=== PATIENT | female | born 1955 | race Caucasian/White ===

== ENCOUNTER 2019-10-18 11:07 | Emergency (ER) | payer OTHER, SELFPAY ==
[2019-10-18 11:10] VITALS: BP 129/66; PULSE 112; RESP 18; TEMP 36.9; O2SAT 96
--- NOTE | 2019-10-18 11:19 | ED.URI ---
HPI - URI/Sore Throat General Chief Complaint: Upper Respiratory Infection Stated Complaint: COUGH/SORE THROAT Time Seen by Provider: 10/18/19 11:20 Source: patient Mode of arrival: ambulatory Limitations: no limitations History of Present Illness HPI Narrative: A 64 y/o female, who is a nonsmoker/nondrinker, presents to with c/o a sore throat for 2.5 weeks. 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 She reports sinus congestion, an earache, a cough, back pain, and rhinorrhea, but denies a fever, calf pain/ edema, sputum, and CP. Pt does not have an inhaler at home. Onset (ago): week(s) (2.5) Related Data Home Medications Medication Instructions Recorded Confirmed paroxetine HCl [Paxil] 20 mg PO QAM 08/12/19 10/18/19 Allergies Allergy/AdvReac Type Severity Reaction Status Date / Time No Known Allergies Allergy Mild Unverified 10/18/19 11:09 Review of Systems Review of Systems: Narrative: General/Constitutional: Denies: weight loss,fever Eyes: Denies: Redness,discharge Ears/Nose/Throat: Reports: sore throat, sinus congestion, earache, rhinorrhea; Denies: Epistaxis,ear discharge Respiratory: Reports: cough; Denies: Hemoptysis Cardiovascular: Denies: CP, edema Gastrointestinal: Denies: Vomiting, Bleeding-rectal Skin: Denies: Lumps, eruption Musculoskeletal: Reports: back pain Neurologic: Denies: Focal Weakness,Sz Hematologic: Denies: Petechiae/Purpura Psychiatric: Denies: Suicidal ideation All systems reviewed & are unremarkable except as noted in HPI and below PMFSH Past Medical History Medical History (Updated 10/18/19 @ 11:38 by Roxana Lagos) Anxiety Arthritis Depression HLD (hyperlipidemia) Migraines Surgical History Surgical History (Updated 10/18/19 @ 11:38 by Roxana Lagos) H/O bilateral hip replacements H/O lumpectomy benign H/O Spinal surgery H/O: hysterectomy History of bladder suspension procedure Social History Social History (Updated 10/18/19 @ 11:38 by Roxana Lagos) Smoking status: Never smoker Second hand tobacco smoke exposure: Yes Alcohol intake: never Comments PCP: Dr. Holliday At time of signature, agree with nursing past medical, surgical, social and family history. There is no relevant family history pertinent to the presenting complaint Exam Narrative: Exam Narrative: General Appearance: Well appearing, Well nourished EYE: PERRLA, Conjunctiva clear Ears: Auditory canal normal, TM normal Nose: Rhinorrhea, Mucousal erythema Mouth/Throat: MM moist, Uvula midline, Pharyngeal erythema Neck: Supple, No adenopathy Respiratory: No respiratory distress, Breath sounds equal, Clear to auscultation Cardiovascular: Tachycardic, regular rhythm, No JVD Musculoskeletal: Non tender, Normal strength Skin: Warm, Dry Neurological: A&O x3, CN II-XII intact Psychiatric: Normal mood, Normal affect Course Vital Signs Vital signs: Vital Signs Temperature 98.5 F 10/18/19 11:10 Pulse Rate 112 H 10/18/19 11:10 Respiratory Rate 18 10/18/19 11:10 Blood Pressure 129/66 10/18/19 11:10 Pulse Oximetry 96 10/18/19 11:10 Temperature 98.5 F 10/18/19 11:10 Pulse Rate 112 H 10/18/19 11:10 Respiratory Rate 18 10/18/19 11:10 Blood Pressure 129/66 10/18/19 11:10 Pulse Oximetry 96 10/18/19 11:10 MDM - URI/Sore Throat Lab Data Labs: Strep Screen Presumptive Negative *(Reference Range: Negative)* Discharge Plan Discharge Clinical Impression: Pharyngitis Patient Disposition: Home, Self-Care Condition: Stable Instructions: Antibiotic Form, Pharyngitis (ED) Prescriptions: New azithromycin 250 mg tablet See Rx Instructions .ROUTE .COMPLEX Qty: 6 RF: 0 Lidocaine Viscous 2 % solution 5 ml MUCOUS MEM QID PRN (Reason: pain) Qty: 100 RF: 0 codeine-guaifenesin 10-100 mg/5 mL liquid 7.5 ml PO Q6H PRN (Reason: cough) Qty: 118 RF: 0 No Action
== END 2019-10-18 11:40 | disposition home or self-care (01) ==
PROVIDERS: Emergency Provider Emergency Medicine; PCP Internal Medicine
DX: J02.9 Acute pharyngitis, unspecified (principal); M19.90 Unspecified osteoarthritis, unspecified site; E78.5 Hyperlipidemia, unspecified; F41.9 Anxiety disorder, unspecified; F32.9 Major depressive disorder, single episode, unspecified; Z96.642 Presence of left artificial hip joint
CPT/HCPCS: 87081; 87880; 99213; G0463

== ENCOUNTER 2020-05-05 16:25 | Emergency (ER) | payer OTHER, SELFPAY ==
--- NOTE | ~2020-05-05 | XR_ITS ---
EXAMINATION: XR chest 2V 05/05/2020 16:54 INDICATION: Left chest pain PROCEDURE: 2 view chest COMPARISON: 05/21/2012 FINDINGS: The lungs are clear. The lungs are hyperinflated which is consistent with, but not diagnost ic of chronic obstructive pulmonary disease. The cardiomediastinal silhouette is within normal limit s. There are no pleural effusions. There is no pneumothorax suspected. IMPRESSION: 1: NO ACUTE CARDIOPULMONARY DISEASE. Reviewed, dictated and finalized at location A.
--- NOTE | 2020-05-05 16:52 | ED.FALL ---
HPI - Fall General Chief Complaint: Fall Stated Complaint: Fall Time Seen by Provider: 05/05/20 16:30 Source: patient and RN notes reviewed Mode of arrival: ambulatory Limitations: no limitations History of Present Illness HPI Narrative: The patient, previously mostly healthy, presents with left chest wall pain. Patient states while at work on Sunday she slipped and fell crossing a curb. She landed on her outstretched hands on concrete and complains of left rib pain, and mentions well-healed leftt knee abrasion. No fever, cough, shortness of breath, sneezing/wheezing, hemoptysis, hematuria; symptoms are mild, worse with palpation, slightly relieved with OTC/home pain meds Related Data Allergies Allergy/AdvReac Type Severity Reaction Status Date / Time No Known Allergies Allergy Mild Unverified 10/18/19 11:09 Review of Systems Review of Systems: Narrative: The patient has been informed that they may have pre-hypertension or Hypertension based on a BP reading in the department. I recommend that the patient call the primary care provider listed on their discharge instructions or a physician of their choice this week to arrange follow up for further evaluation of possible pre-hypertension or Hypertension General/Constitutional: No weight loss,fever Eyes: N0: Redness,discharge Ears/Nose/Throat: No: Epistaxis,ear discharge Respiratory: Denies: Hemoptysis Gastrointestinal: No Vomiting, Bleeding-rectal Skin: No Lumps, eruption Neurologic: No Focal Weakness,Sz Hematologic: Denies: Petechiae/Purpura Psychiatric: No: Suicida ideationl All Other Systems: Reviewed and Negative REPLACED BY [facility] Past Medical History Medical History (Updated 05/05/20 @ 16:58 by Tom Jay MD) Anxiety Arthritis Depression HLD (hyperlipidemia) Migraines Surgical History Surgical History (Updated 10/18/19 @ 11:38 by Roxana Lagos) H/O bilateral hip replacements H/O lumpectomy benign H/O Spinal surgery H/O: hysterectomy History of bladder suspension procedure Social History Social History (Updated 10/18/19 @ 11:38 by Roxana Lagos) Smoking status: Never smoker Second hand tobacco smoke exposure: Yes Alcohol intake: never Comments At time of signature, agree with nursing past medical, surgical, social and family history. There is no relevant family history pertinent to the presenting complaint Exam Narrative: Exam Narrative: General Appearance: Well appearing, conjunctiva clear Mouth/Throat: Normal appearing, Normal lips Supple Respiratory: Airway patent, No respiratory distress Skin: Point tender left ribs T7-11 , warm, Dry Cardiovascular: RRR Musculoskeletal: Full strength Neurological: A&O x3, Normal affect Course Vital Signs Vital signs: Vital Signs Temperature 99.2 F 05/05/20 16:54 Pulse Rate 93 05/05/20 16:54 Respiratory Rate 18 05/05/20 16:54 Blood Pressure 143/73 H 05/05/20 16:54 Pulse Oximetry 97 05/05/20 16:54 Temperature 99.2 F 05/05/20 16:54 Pulse Rate 93 05/05/20 16:54 Respiratory Rate 18 05/05/20 16:54 Blood Pressure 143/73 H 05/05/20 16:54 Pulse Oximetry 97 05/05/20 16:54 Discharge Plan Discharge Clinical Impression: Rib injury Patient Disposition: Home, Self-Care Condition: Stable Instructions: Rib Fracture (ED) Additional Instructions: Reduce Paxil by half when taking prescription pain meds Prescriptions: New tramadol 50 mg tablet 50 mg PO TID PRN (Reason: pain) Qty: 15 RF: 1 acetaminophen-codeine 120 mg-12 mg /5 mL (5 mL) solution 15 ml PO Q8H PRN (Reason: pain) Qty: 200 RF: 0 No Action simvastatin 20 mg tablet 20 mg PO DAILY Qty: 90 RF: 2 paroxetine HCl [Paxil] 20 mg tablet 20 mg PO QAM Qty: 30 RF: 0 Follow-up/Referrals: Erich Holliday DO [Primary Care Provider] - Discharge Date/Time: 05/05/20 17:14
[2020-05-05 16:54] VITALS: BP 143/73; PULSE 93; RESP 18; TEMP 37.3; O2SAT 97
== END 2020-05-05 17:14 | disposition home or self-care (01) ==
PROVIDERS: Emergency Provider Emergency Medicine; PCP Internal Medicine
DX: S29.9XXA Unspecified injury of thorax, initial encounter (principal); W01.0XXA Fall on same level from slipping, tripping and stumbling without subsequent striking against object, initial encounter; F41.9 Anxiety disorder, unspecified; M19.90 Unspecified osteoarthritis, unspecified site; Z96.643 Presence of artificial hip joint, bilateral
CPT/HCPCS: 71046; 99203; G0463

== ENCOUNTER → 2020-10-28 13:26 | Outpatient (CLI) | payer OTHER, SELFPAY ==
--- NOTE | ~2020-10-28 | MM_ITS ---
EXAMINATION: MM screening sunny BI w alexandra HISTORY: Screening TECHNIQUE: Craniocaudal and mediolateral oblique 3-D tomosynthesis images were obtained and synthetic 2-D images were generated. CAD analysis was submitted and interpreted. COMPARISON: Comparison to multiple prior studies sequentially, with oldest reviewed study dated 02/23. BREAST PARENCHYMAL COMPOSITION: There are scattered areas of fibroglandular density. FINDINGS: There is no evidence of suspicious mass, calcification, or architectural distortion to sugg est malignancy in either breast. There has been no suspicious interval change. IMPRESSION: 1. No mammographic evidence of malignancy. 2. Recommend routine screening mammography in one year. BI-RADS Category 1: Negative Reviewed, dictated and finalized at location A. R LEAK REPAIRER
== END ==
PROVIDERS: PCP Internal Medicine; Visit Provider Internal Medicine
DX: Z12.31 Encounter for screening mammogram for malignant neoplasm of breast (principal)
CPT/HCPCS: 77063; 77067

== ENCOUNTER 2021-07-28 12:25 | Emergency (ER) | payer OTHER, SELFPAY ==
[2021-07-28 12:35] VITALS: BP 118/47; PULSE 104; RESP 16; TEMP 36.9; O2SAT 96
--- NOTE | 2021-07-28 12:42 | ED.EXTPRO ---
HPI - Extremity Problem General Chief complaint: Extremity Problem,Nontraumatic Stated complaint: lt leg pain Source: patient Mode of arrival: ambulatory Limitations: no limitations History of Present Illness HPI Narrative: Patient is a 65-year-old female who presents complaining of left lower extremity pain x1 day. Patient reports tenderness with ambulation and palpation of left lower extremity. Patient has a history of varicose veins, she does not have a history of blood clots. She denies all other complaints at this time. She denies taking srbb-wvs-juibwiz medications prior to arrival. MD Complaint: extremity pain and extremity swelling Related Data Allergies Allergy/AdvReac Type Severity Reaction Status Date / Time No Known Allergies Allergy Mild Verified 07/28/21 12:34 Review of Systems Review of Systems: CONSTITUTIONAL: Denies fever, chills, or sweats. EYES: Denies visual changes, redness, or discharge. ENT: Denies rhinorrhea, congestion, sore throat, or otalgia. CARDIOVASCULAR: Denies chest pain, palpitations, or edema. RESPIRATORY: Denies cough or dyspnea. GASTROINTESTINAL: Denies abdominal pain, nausea, vomiting, or diarrhea. GENITOURINARY: Denies dysuria or hematuria. SKIN: Denies rash or itching. MUSCULOSKELETAL: Left lower extremity pain NEUROLOGIC: Denies headache, numbness, dizziness, or weakness. PSYCHIATRIC: Denies anxiety or depression. [facility] Past Medical History Medical History Anxiety Arthritis Depression HLD (hyperlipidemia) Migraines Prediabetes Surgical History Surgical History H/O bilateral hip replacements H/O lumpectomy benign H/O Spinal surgery H/O: hysterectomy History of bladder suspension procedure Social History Social History Smoking status: Never smoker Second hand tobacco smoke exposure: Yes Alcohol intake: never Comments At the time of signature, I have reviewed and agree with nursing past medical, surgical, social, and family history unless otherwise noted. Please see nursing chart for further information. There is no relevant family history pertinent to the presenting complaint. Exam Narrative: GENERAL: Well-appearing, well-nourished, and in no acute distress. HEAD: Normocephalic, atraumatic. EYES: EOMI. No redness or drainage. Conjunctiva are normal. ENT: Mucous membranes pink and moist. CHEST: No respiratory distress. Clear to auscultation. HEART: Regular rate and rhythm. GI: Soft, nontender without rebound, or guarding. No distention. Bowel sounds normal in all quadrants. MUSCULOSKELETAL: No bony tenderness. EXTREMITIES: Normal range of motion. Tenderness with palpation to left lower extremity, edema noted SKIN: Warm, dry, no rash. NEURO: No focal deficits. Alert and oriented x3. Gait steady. PSYCH: Normal affect. No signs of depression or anxiety. Course Consultations Consultation #1: Spoke with Shelley Bojorquez NP at Dr. Holliday's office. Patient to have venous Doppler of left lower extremity ordered. Patient is aware that she needs to go to [place] for further evaluation after leaving here. Date: 07/28/21 Time: 13:23 Vital Signs Vital signs: Vital Signs Temperature 36.9 C 07/28/21 12:35 Pulse Rate 104 H 07/28/21 12:35 Respiratory Rate 16 07/28/21 12:35 Blood Pressure 118/47 L 07/28/21 12:35 Pulse Oximetry 96 07/28/21 12:35 Temperature 36.9 C 07/28/21 12:35 Pulse Rate 104 H 07/28/21 12:35 Respiratory Rate 16 07/28/21 12:35 Blood Pressure 118/47 L 07/28/21 12:35 Pulse Oximetry 96 07/28/21 12:35 At the time of signature, I have reviewed and agree with nursing past medical, surgical, social, and family history unless otherwise noted. Please see nursing chart for further information. There is no relevant family history pertinent to the presentin
== END 2021-07-28 13:30 | disposition home or self-care (01) ==
PROVIDERS: Emergency Provider Nurse Practitioner; PCP Internal Medicine
DX: M79.662 Pain in left lower leg (principal); R60.0 Localized edema; M19.90 Unspecified osteoarthritis, unspecified site; E78.5 Hyperlipidemia, unspecified; R73.03 Prediabetes; Z96.643 Presence of artificial hip joint, bilateral; F41.9 Anxiety disorder, unspecified; F32.A Depression, unspecified
CPT/HCPCS: 99212; G0463

== ENCOUNTER 2021-07-28 13:54 | Outpatient (CLI) | payer OTHER, SELFPAY ==
--- NOTE | ~2021-07-28 | US_ITS ---
EXAMINATION: US venous doppler [facility] EXAM DATE: 07/28/2021 14:31 INDICATION: M79.605 - Pain in left leg . TECHNIQUE: Multiple grayscale, color flow and Doppler images of the left lower extremity deep venous system were obtained and reviewed. There is no prior study for comparison. FINDINGS: The left common femoral, femoral and profunda veins demonstrate normal color flow, respirat ory variation, augmentation and compressibility. Compressibility, color flow confirmed within the le ft popliteal, posterior tibial, peroneal, and greater saphenous veins. Scanning left calf lateral area of pain demonstrates a thrombosed superficial varicose vein. IMPRESSION: 1. No left lower extremity deep venous thrombosis. 2. Left calf superficial thrombophlebitis. Reviewed, dictated and finalized at location B. 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
== END 2021-07-28 13:55 | disposition home or self-care (01) ==
LOC: ANHIMG 13:55
PROVIDERS: PCP Internal Medicine; Visit Provider Nurse Practitioner
DX: M79.605 Pain in left leg (principal); I80.02 Phlebitis and thrombophlebitis of superficial vessels of left lower extremity
CPT/HCPCS: 93971

== ENCOUNTER 2021-11-11 10:12 | Outpatient (CLI) | payer MEDICARE, OTHER, SELFPAY ==
--- NOTE | 2021-11-11 10:53 | EST_ITS ---
Patient Info Name: Deanna Tristan Age: 66 years : 1955 Gender: Female Ht: 71 in Wt: 195 lbs BSA: 2.12 m2 HR: 112 bpm BP: 143 / 82 mmHg Heart Rhythm: Sinus Rhythm Exam Date: 11/11/2021 11:58 AM Exam Location: [facility] Patient Status: Outpatient Admit Date: 11/11/2021 Staff Ordering Physician: Shelley Gamez NP Attending Provider: Shelley Gamez NP Exercise Technologist: Maria G Andersen CT Exercise Physician: Robert Cobb DO Exam Type: CA stress test treadmill Study Info Indications R06.00 - Dyspnea, unspecified A treadmill exercise stress test was performed. Summary 1. 1. Negative [facility] exercise stress test for ischemic ST changes by ECG criteria. 2. 2. Reduced functional capacity, achieving 6 METs of workload. 3. 3. Baseline hypertension. 4. 4. Appropriate HR response to exercise. 5. 5. Appropriate HR recovery at 1 minute post exercise. 6. 6. No imaging with stress testing. 7. 7. Patient informed of the above results. Protocol: [facility] ECG Details Stage: REST Duration (min): 0 min : 47 sec Speed (mph): 0.0 Grade (%): 0 HR (bpm): 109 SBP (mmHg): 143 DBP (mmHg): 82 METS: --- Stage: REST Duration (min): 8 min : 13 sec Speed (mph): 0.0 Grade (%): 0 HR (bpm): 118 SBP (mmHg): 143 DBP (mmHg): 82 METS: --- Stage: STAGE 1 Duration (min): 1 min : 0 sec Speed (mph): 1.7 Grade (%): 10 HR (bpm): 132 SBP (mmHg): 143 DBP (mmHg): 82 METS: --- Stage: STAGE 1 Duration (min): 2 min : 0 sec Speed (mph): 1.7 Grade (%): 10 HR (bpm): 137 SBP (mmHg): 143 DBP (mmHg): 82 METS: --- Stage: STAGE 1 Duration (min): 3 min : 0 sec Speed (mph): 1.7 Grade (%): 10 HR (bpm): 138 SBP (mmHg): 200 DBP (mmHg): 48 METS: --- Stage: STAGE 2 Duration (min): 1 min : 0 sec Speed (mph): 2.5 Grade (%): 12 HR (bpm): 145 SBP (mmHg): 200 DBP (mmHg): 48 METS: --- Stage: STAGE 2 Duration (min): 1 min : 18 sec Speed (mph): 2.5 Grade (%): 12 HR (bpm): 146 SBP (mmHg): 200 DBP (mmHg): 48 METS: --- Stage: RECOVERY Duration (min): 0 min : 41 sec Speed (mph): 0.0 Grade (%): 0 HR (bpm): 137 SBP (mmHg): 202 DBP (mmHg): 50 METS: --- Stage: RECOVERY Duration (min): 1 min : 41 sec Speed (mph): 0.0 Grade (%): 0 HR (bpm): 129 SBP (mmHg): 202 DBP (mmHg): 50 METS: --- Stage: RECOVERY Duration (min): 2 min : 18 sec Speed (mph): 0.0 Grade (%): 0 HR (bpm): 123 SBP (mmHg): 198 DBP (mmHg): 63 METS: --- Rest HR: 118 bpm Peak HR: 147 bpm Rest Sys BP: 143 mmHg Peak Sys BP: 202 mmHg Max Pred HR: 155 bpm % Max Pred HR: 95 % Target HR: 132 bpm Max RPP: 29,694 bpm*mmHg Dominguez Score: -5 Termination Reason: Reached target heart rate or workload Cardiac Symptoms: Shortness of breath Max ST Seg Deviation: 1.90 mm Total Time: 4 min : 18 sec Rest Bateman
== END 2021-11-11 10:13 | disposition home or self-care (01) ==
PROVIDERS: PCP Internal Medicine; Visit Provider Nurse Practitioner
DX: R06.00 Dyspnea, unspecified (principal)
CPT/HCPCS: 93017

== ENCOUNTER → 2022-01-10 12:39 | Outpatient (CLI) | payer MEDICARE, OTHER, SELFPAY ==
--- NOTE | ~2022-01-10 | MM_ITS ---
EXAMINATION: MM screening sunny BI w alexandra HISTORY: Screening mammogram TECHNIQUE: Craniocaudal and mediolateral oblique 3-D tomosynthesis images were obtained and synthetic 2-D images were generated. CAD analysis was submitted and interpreted. COMPARISON: October 28, 2020, April 15, 2019, January 09, 2018 bilateral screening mammogram examinations BREAST PARENCHYMAL COMPOSITION: The breasts are almost entirely fatty. FINDINGS: There is a biopsy marker on the left; history of prior benign left breast biopsy. There is no evidence of suspicious mass, calcification, or architectural distortion to suggest malignancy in e ither breast. There has been no suspicious interval change. IMPRESSION: 1. No mammographic evidence of malignancy. 2. Recommend routine screening mammography in one year. BI-RADS Category 1: Negative Reviewed, dictated and finalized at location A.
== END ==
PROVIDERS: PCP Internal Medicine; Visit Provider Nurse Practitioner
DX: Z12.31 Encounter for screening mammogram for malignant neoplasm of breast (principal)
CPT/HCPCS: 77063; 77067

== ENCOUNTER 2022-06-23 01:49 | Day surgery (SDC) | payer MEDICARE, OTHER, SELFPAY ==
[2022-06-15 10:06] VITALS: BMI 27.0
--- NOTE | 2022-06-15 10:23 | PC.NURSE ---
Report to the Outpatient Waiting Room, entrance under the green pavilion located off [facility], at time __6:00AM on date __06/23/22 . OR Time: __7:30AM . Time changes happen often and if your time is changed the preop area will call you the afternoon before. - You and your visitor will be asked to self-screen and do not enter if you have any COVID symptoms. - Only one visitor and NO children visitors are allowed at this time. - The patient visitor is requested to leave or wait in car when not with patient due to restrictions. - A mask is required within the hospital. Patients may have clear liquids (water, carbonated beverages, clear teas, apple juice) until 3 hours prior to surgery with a maximum of 20 ounces. - No food from midnight until time of surgery Take the following medications with a SIP of water the morning of surgery: ___PAROXETINE Medications to discontinue per physician ____HOLD ALL VITAMINS/SUPPLEMENTS 3 DAYS PRE-OP Date to take last dose___06/19/22 Please no make-up, nail montserratian, hairspray, perfume, deodorant, or body powder the day of surgery. No jewelry (including any body piercings) or valuables the day of surgery, leave them at home. Please take a shower or bath the night before, or the morning of, surgery with an antibacterial soap. Wear comfortable, loose fitting clothing. Children are encouraged to wear pajamas. - Jewelry must be removed prior to entering the operating room. Rings and piercings that are not removed may be cut off. - The hospital will not accept responsibility for valuables. - Please leave all valuables, including medications, at home the day of surgery. If you are going home after surgery, a licensed regional owner operator truck driver must drive you home. - NO public transportation without another adult. - We recommend that an adult stay with you for 24 hours following discharge. - We also recommend that you do not drive, make important decision, drink alcoholic beverages, or take any drugs that were not prescribed by your health care provider for at least 24 hours after your discharge time. Follow any additional instructions given to you from your surgeon. If you or anyone in your household have experienced Covid symptoms in the past week, please notify your surgeon or the nurse liaison at the phone number below for possible testing. Telephone instructions given to ___PATIENT and asked if any additional questions and then verbalized understanding. Patient advised to call surgeon office or pre surgery nurse liaison [phone] if any additional questions.
[2022-06-23] VITALS (9 sets, daily range): BP systolic 113–136; BP diastolic 43–73; PULSE 77–100; RESP 13–16; TEMP 36.3–36.4; O2SAT 96–100
--- NOTE | ~2022-06-23 | XR_ITS ---
EXAMINATION: XR surgery orthopedic DATE: 06/23/2022 08:11 INDICATION: Hammertoe deformity of right foot second digit. TECHNIQUE: A single intraoperative fluoroscopic view of the right foot was obtained. I was not presen t. Fluoroscopy exposure time was 1 second. COMPARISON: Right foot radiographs 07/22/2014 FINDINGS: There is mild hallux valgus. No fracture. There is resection of the head of the second prox imal phalanx. There is an arthrodesis implant at second proximal interphalangeal joint. There is a co axial wire overlying the second digit and head of the second metatarsal. IMPRESSION: 1. Arthrodesis procedure at second proximal interphalangeal joint. Reviewed, dictated and finalized at location A.
[2022-06-23] MEDS: LACTATED RINGERS 1,000 ML 30 ML IV CONT (06:20)
--- NOTE | 2022-06-23 06:47 | P.PNAN_ITS ---
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 digit Patient Data Age: 66 Gender: F Height: 1.8 m Weight: 87.2 kg Last Vital Signs Temp 36.3 C L 06/23/22 06:25 Pulse 100 06/23/22 06:25 Resp 16 06/23/22 06:25 BP 117/43 L 06/23/22 06:25 Pulse Ox 98 06/23/22 06:25 O2 Del Method Room Air 06/23/22 06:25 Allergies Allergy/AdvReac Type Severity Reaction Status Date / Time No Known Allergies Allergy Mild Verified 06/23/22 06:06 Home Medications Medication Instructions Recorded Confirmed Type paroxetine HCl 20 mg tablet (Paxil) 20 mg PO QAM #90 tabs 11/08/21 06/23/22 Rx simvastatin 20 mg tablet 20 mg PO DAILY #90 tabs 11/08/21 06/23/22 Rx ascorbic acid (vitamin C) 500 mg 500 mg PO DAILY 06/15/22 06/23/22 History tablet cholecalciferol (vitamin D3) 50 50 mcg PO DAILY 06/15/22 06/23/22 History mcg (2,000 unit) capsule cyanocobalamin (vitamin B-12) 500 500 mcg PO DAILY 06/15/22 06/23/22 History mcg tablet iron 40 mg capsule 45 mg PO DAILY 06/15/22 06/23/22 History oxycodone-acetaminophen 5 mg-325 1 tablet PO Q4-6H PRN Pain 06/15/22 06/15/22 History mg tablet Patient hx anesthesia problems: none Family hx anesthesia problems: none Results Review: All pre-operative results and documents have been reviewed as part of the pre- operative evaluation. [facility] Past Medical History Medical History Anxiety Arthritis Depression HLD (hyperlipidemia) Migraines Prediabetes Surgical History Surgical History H/O bilateral hip replacements H/O lumpectomy benign H/O Spinal surgery H/O: hysterectomy History of bladder suspension procedure Social History Social History Smoking status: Never smoker Second hand tobacco smoke exposure: Yes Alcohol intake: never Substance use: never Living arrangements: with family Additional living arrangements comments: [facility] Spiritual care concerns: No Anes - Eval Final PreProcedure Day of Procedure 06/23/22 06:47 Patient weight: overweight Heart: regular rate and rhythm Lungs: clear to auscultation Airway: Mallampati scale class III and special considerations retrognathia Neurological: alert and oriented Last oral intake: >/= 8 hours ASA classification: II Emergent: no Anesthetic plan: proceed Anesthesia type and monitoring: general GIVS and standard monitoring Results Review: All pre-operative results and documents have been reviewed as part of the pre- operative evaluation. Informed Consent: The patient's anesthetic plan and its attendant risks and benefits were discussed with the patient/family/POA. Questions were solicited and answers provided to the satisfaction of the patient/family/POA.
--- NOTE | 2022-06-23 07:19 | WPDHPUPDATE1 ---
History and Physical Update Update Date/Time: 06/23/22 07:19 History and Physical has been reviewed, including an updated exam of the patient. There are NO changes in the patient's condition. Risks, benefits, and alternatives have been discussed and questions answered. Patient agrees to proceed with procedure.
[2022-06-23] MEDS: ceFAZolin 2 GM/D5W 50 ML 2 GM/50 ML BAG IVPB (07:29)
[2022-06-23] MEDS: LIDOCAINE HCL 2% LOCAL INJ 20 ML VIAL 10 ML INFILTRATE (07:57)
--- NOTE | 2022-06-23 08:16 | W.PM.PROC2 ---
Procedure Note - Detailed Date of Procedure 06/23/22 Pre-op Diagnosis 1. Mucoid cyst 2nd digit right foot at the distal interphalangeal joint 2. Hammertoe deformity 2nd digit right foot Post-op Diagnosis Same Procedure Performed 1. Excision of mucoid cyst from the 2nd digit right foot 2. Hammertoe repair 2nd digit right foot Surgeon Kevin Red JR, DPM Indications Recurrent mucoid cyst 2nd digit distal interphalangeal joint right foot Description of Procedure Under mild sedation, the patient was brought in to the operating room, placed on the operating table in the supine position. A pneumatic ankle tourniquet was placed about the patient's ankle. Following monitored anesthesia care, local anesthesia was obtained about the foot utilizing 20 mL of a 1:1 mixture of 2% Lidocaine plain and 0.5% Marcaine plain with a modified proximal Pedraza block proximal to each corresponding digit. The foot was then scrubbed, prepped, and draped in the usual aseptic manner. An Esmarch bandage was then used to exsanguinate the patient's foot and the pneumatic ankle tourniquet was then inflated. Attention was directed to the second digit of the right foot where a 3cm incision was made from just distal to the interphalangeal joint right foot extending to the base of the 2nd digit. A transverse tenotomy was created dorsal to the proximal interphalangeal joint, next the head of the proximal phalanx was resected with an oscillating saw blade, the [employer] hammertoe planer was used to denude and prepare the joint for the hammertoe implant from the base of the middle phalanx and distal proximal phalanx. I extended the incision distally I excised a small thickwalled cyst from the dorsal aspect of the 2nd digit distal interphalangeal joint. Next I utilized a sagittal saw blade to resect the cartilage from the head of the middle phalanx and base of the distal phalanx. Next, I implanted the [employer] Phalinx size small hammertoe implant in a cannulated fashion using standard technique. Fluoroscopy was used to make sure that the digit and implant were appropriately positioned. I also used the K wire to hold the 2nd digit in a rectus position by driving the K wire into the 2nd metatarsal. Fluroscopy was used to make sure that the k wire and implant was appropriately postioned. I reapproximated the extensor tendon, subcutaneous structures with 4.0 Vicryl and the skin with 4-0 Monocryl. Upon completion of the procedure, the incisions were dressed with Steri-Strips, Adaptic, 4x4s, Kerlix, and Coban. The pneumatic ankle tourniquet was then deflated and a prompt hyperemic response was noted to all digits of the right foot. A surgical shoe was then applied. The patient did very well with the procedure and the anesthesia. The patient was transferred to the recovery room with vital signs stable and vascular status intact to all toes of the right foot. Following a period of postoperative monitoring, the patient will be discharged home on the following written and oral postoperative instructions: 1. The patient should keep the dressing clean, dry, and intact. Use a cast protector bag with showers. 2. The patient will be protected with surgical shoe. 3. Patient should ice and elevate the affected foot when at rest. 4. The patient is to contact Dr. Red for all postop care and if any problems arise. 5. Prescriptions were written for Percocet 5/325 to be taken 1 p.o. q.4-6 hours as needed for severe pain. Implants [employer] size small Phalinx hammertoe implant Estimated Blood Loss 1 Packing No Pathology None sent Complications No immediate complications Condition Stable Disposition Same day
== END 2022-06-23 09:37 | disposition home or self-care (01) ==
PROVIDERS: PCP Internal Medicine; Visit Provider Podiatrist Foot & Ankle Surgery
PROC: (CPT 28750; principal; 2022-06-23 07:30)
DX: M20.41 Other hammer toe(s) (acquired), right foot (principal); M25.871 Other specified joint disorders, right ankle and foot; R73.03 Prediabetes; F41.9 Anxiety disorder, unspecified; F32.A Depression, unspecified; E78.5 Hyperlipidemia, unspecified
CPT/HCPCS: 28285; 99199; C1713; J0690; J1100; J2250; J2405; J2704; J3010; J7120

== ENCOUNTER 2023-01-15 11:37 | Outpatient (CLI) | payer MEDICARE, SELFPAY ==
[2023-01-15 18:41] LABS: Sodium 143 mmol/L (137-145)
[2023-01-15 18:42] LABS: Basophils Absolute Auto 0.1 K/mm3 (0.0-0.1); Basophils Percent Auto 0.8 % (0.2-1.2); Eosinophils Absolute Auto 0.2 K/mm3 (0-0.3); Eosinophils Percent Auto 2.2 % (0-4.4); Hematocrit 42.5 % (37.0-47.0); Hemoglobin 13.1 g/dL (12.0-15.0); Immature Granulocyte Absolute 0.02 K/mm3 (0.00-0.031); Immature Granulocyte Percent A 0.3 % (0-0.5); Lymphocytes Absolute Auto 1.89 K/mm3 (0.9-3.2); Lymphocytes Percent Auto 25.7 % (18.3-44.2); Mean Corpuscular HGB Conc 30.8 g/dl (32-36); Mean Corpuscular Volume 90.8 fl (80-100); Mean Platelet Volume 11.1 fl (7.4-10.4); Monocytes Absolute Auto 0.5 K/mm3 (0.1-0.6); Monocytes Percent Auto 6.7 % (2.6-8.5); Neutrophils Absolute Auto 4.7 K/mm3 (1.3-6.7); Neutrophils Percent Auto 64.3 % (45.5-73.1); Platelet Count Result 259 k/mm3 (150-375); Red Blood Count 4.68 M/mm3 (4.2-5.4); Red Cell Distribution Width 13.6 % (11.5-14.5); White Blood Count 7.4 K/mm3 (4.5-10.0)
[2023-01-15 18:44] LABS: Alanine Aminotransferase 26 U/L (6-35); Albumin Level 4.6 g/dL (3.5-5.1); Alkaline Phosphatase 106 U/L (38-126); Anion Gap 6 mmol/L (8-16); Aspartate Amino Transferase 62 U/L (14-36); Bilirubin,Total 0.5 mg/dL (0.2-1.3); Blood Urea Nitrogen 22 mg/dL (7-17); Calcium 8.8 mg/dL (8.4-10.2); Carbon Dioxide 31 mmol/L (22-30); Chloride 106 mmol/L (98-107); Cholesterol 229 mg/dL (0-200); Estimated Glomerular Filt Rate > 60; Glucose 121 mg/dL (65-110); HDL Direct 43 mg/dL; Potassium 4.3 mmol/L (3.4-5.0); Triglycerides 142 mg/dL (<150)
[2023-01-15 18:52] LABS: LDL Cholesterol Direct 134 mg/dL
[2023-01-16 11:47] LABS: Hemoglobin A1C 6.1 % (<5.7)
== END 2023-01-15 11:38 | disposition home or self-care (01) ==
LOC: ANHGOSHLAB 11:38
PROVIDERS: PCP Internal Medicine; Visit Provider Nurse Practitioner
DX: E78.5 Hyperlipidemia, unspecified (principal); R73.03 Prediabetes; Z13.29 Encounter for screening for other suspected endocrine disorder
CPT/HCPCS: 36415; 80053; 80061; 83036; 85025

== ENCOUNTER 2023-01-29 14:36 | Outpatient (CLI) | payer MEDICARE, SELFPAY ==
--- NOTE | 2023-01-30 09:08 | WPDPFTINT ---
PFT Procedure Performed PFT Procedure Performed Spirometry with Pre/Post Bronchodilator Plethysmography (Lung Vol) Diffusing Cap (DLCO) Flow Vol Loop PFT Interpretation Lung volumes were measured with the body plethysmography method. Lung volumes are unremarkable. Spirometry showed normal expiratory flow rates and a normal FEV1 to FVC ratio of 75%. Following administration of a bronchodilator there was no significant increase in expiratory flow rates. Lung diffusion capacity is within the normal range at 80% predicted. The flow-volume loop is unremarkable. Impression: Spirometry, lung volumes, and lung diffusion capacity all within the normal range.
== END 2023-01-29 14:37 | disposition home or self-care (01) ==
LOC: ANHPFT 14:38
PROVIDERS: PCP Internal Medicine; Visit Provider Nurse Practitioner
DX: R06.00 Dyspnea, unspecified (principal)
CPT/HCPCS: 94060; 94726; 94729

== ENCOUNTER 2023-02-28 15:34 | Outpatient (CLI) | payer MEDICARE, SELFPAY ==
--- NOTE | 2023-02-28 | ECHO_ITS ---
Patient Info Name: Deanna Tristan Age: 67 years : 1955 Gender: Female Ht: 71 in Wt: 195 lbs BSA: 2.12 m2 HR: 78 bpm BP: 130 / 60 mmHg Technical Quality: Fair Exam Date: 02/28/2023 3:50 PM Exam Location: [facility] Pulmonary Patient Status: Outpatient Admit Date: 02/28/2023 Staff Ordering Physician: Shelley Gamez NP Tilting Saw Operator: Ofe Watkins RDCS Attending Provider: Shelley Gamez NP Referring Physician: Vera HUFFMAN; Exam Type: CA echo doppler color flow Study Info Indications - dyspnea Complete two-dimensional, color flow and Doppler transthoracic echocardiogram is performed. Summary 1. Complete two-dimensional, color flow and Doppler transthoracic echocardiogram is performed. 2. Left ventricular chamber dimension is normal. 3. Left ventricular systolic function is normal, estimated at 60-65%. 4. The left ventricular diastolic function is grade I diastolic dysfunction. 5. E/e' 7 is not elevated. 6. Right ventricular systolic function is mildly reduced. 7. Right ventricular chamber dimension is moderately enlarged. 8. Right atrial chamber dimension is mildly enlarged. 9. The mitral valve has mildly calcified annulus. 10. There is trace tricuspid valve regurgitation. 11. No pulmonary hypertension, estimated pulmonary arterial systolic pressure is 29 mmHg. Left Ventricle E/e' 7 is not elevated. Left ventricular chamber dimension is normal. Left ventricular systolic function is normal, estimated at 60-65%. The left ventricular diastolic function is grade I diastolic dysfunction. Right Ventricle Right ventricular systolic function is mildly reduced. Right ventricular chamber dimension is moderately enlarged. Left Atria Left atrial chamber dimension is normal. Right Atria Right atrial chamber dimension is mildly enlarged. Aortic Valve The aortic valve is trileaflet. There is no aortic valve stenosis. There is no aortic valve regurgitation. Pulmonic Valve There is no pulmonic regurgitation. Mitral Valve The mitral valve has mildly calcified annulus. There is no mitral valve stenosis. There is no mitral valve regurgitation. Tricuspid Valve There is trace tricuspid valve regurgitation. No pulmonary hypertension, estimated pulmonary arterial systolic pressure is 29 mmHg. Pericardium/Pleural There is no pericardial effusion. Inferior Vena Cava Normal inferior vena cava with >50% collapse upon inspiration consistent with normal right atrial pressure, 5 mmHg. Aorta The aortic root size at the sinus of Valsalva is normal. Left Ventricular Outflow Tract Name Value Normal LVOT 2D LVOT Diameter 2.1 cm LVOT Doppler LVOT Peak Gradient 4 mmHg LVOT Mean Gradient 3 mmHg LVOT VTI 19 cm LVOT VTI/AV VTI Ratio 0.9 LVOT Stroke Volume 66 ml LVOT CO 16.4 l/min LVOT CI 7.7 l/min/m2 Pulmonic Valve Name Value Normal
== END 2023-02-28 15:35 | disposition home or self-care (01) ==
LOC: ANHCARD 15:34
PROVIDERS: PCP Internal Medicine; Visit Provider Nurse Practitioner
DX: R06.09 Other forms of dyspnea (principal)
CPT/HCPCS: 93306

== ENCOUNTER → 2023-03-29 11:49 | Outpatient (CLI) | payer MEDICARE, SELFPAY ==
--- NOTE | ~2023-03-29 | MM_ITS ---
EXAMINATION: MM screening sunny BI w alexandra HISTORY: Screening TECHNIQUE: Craniocaudal and mediolateral oblique 3-D tomosynthesis images were obtained and synthetic 2-D images were generated. CAD analysis was submitted and interpreted. COMPARISON: Comparison to multiple prior studies sequentially, with oldest reviewed study dated 04/20. BREAST PARENCHYMAL COMPOSITION: Breast composition is almost entirely fatty FINDINGS: There is no evidence of suspicious mass, calcification, or architectural distortion to sugg est malignancy in either breast. There has been no suspicious interval change. IMPRESSION: 1. No mammographic evidence of malignancy. 2. Recommend routine screening mammography in one year. BI-RADS Category 1: Negative Reviewed, dictated and finalized at location A.
== END ==
PROVIDERS: PCP Internal Medicine; Visit Provider Internal Medicine
DX: Z12.31 Encounter for screening mammogram for malignant neoplasm of breast (principal)
CPT/HCPCS: 77063; 77067

== ENCOUNTER 2023-04-24 10:03 | Outpatient (CLI) | payer MEDICARE, SELFPAY ==
--- NOTE | 2023-05-01 14:47 | WPDHOMESLEEP ---
Sleep Study - Home Unattended Date of Study: 04/24/23 Ordering Provider: Robert Cobb DO Interpreting Provider: Juliet Baker DO Home Sleep Study Type: Watch PAT Height: 1.8 m Weight: 88.451 kg Body Mass Index: 27.1 Neck Circumference (inches): 14.5 [place]: 17 Reason for Sleep Study Daytime hypersomnia Sleep History The patient is a 67-year-old female with anxiety, arthritis, depression, hyperlipidemia, migraines and pre diabetes that had a sleep study ordered by her lead data entry operator for evaluation of sleep apnea. The patient occasionally awakens from sleep short of breath. She frequently awakens at night with heartburn, belching or cough. She constantly snores loudly enough that others complain. She frequently has trouble sleeping when she has a cold. She occasionally wakes up gasping for air throughout the night. She occasionally has breathing problems at night observed by herself or others. She rarely sweats excessively at night. She occasionally has heart palpitations or irregular heartbeats during the night. She constantly falls asleep during the day but never while driving. She denies sleep paralysis and cataplexy. She constantly has trouble at school or work due to sleepiness. She frequently experiences vivid dreamlike scenes upon awakening or falling asleep. She denies feeling afraid of going to sleep. She occasionally has nightmares frequently remembers her dreams. He rarely has thoughts racing through her mind. She occasionally feels sad or depressed. She occasionally has anxiety. She rarely has muscular tension. She rarely notices parts of her body jerk. She rarely kicks during the night. She occasionally has crawling and aching feelings in her legs but rarely has leg pain during the night. She constantly grinds her teeth during sleep but never awakens with morning jaw pain. She is rarely bothered by pain during the day but never awakened by pain during the night. She occasionally wakes up with sore or achy muscles. She rarely wakes up with pain in the neck, spine and other joints. She goes to bed at 11:00 p.m. on both weekdays and weekends. The amount of time for her to fall asleep is variable. She wakes up 3 times throughout the night to urinate and is able to fall back asleep quickly. She wakes up at 9:00 a.m. on both weekdays and weekends. She typically gets 10 hours of sleep per night. He will stay in bed for hours after waking up in the morning. She currently lives with her spouse, child and her grandson. She does not consume any caffeinated beverages within 2 hours of bedtime. She denies engaging in physical exercise before bedtime. She will read and watch television before falling asleep. She will take naps in afternoon or the evening but they are not refreshing. She will consume 1 caffeinated soda per day. She denies tobacco, alcohol and recreational drug use. [facility] Past Medical History Medical History Anxiety Arthritis Depression HLD (hyperlipidemia) Migraines Prediabetes Surgical History Surgical History H/O bilateral hip replacements H/O lumpectomy benign H/O Spinal surgery H/O: hysterectomy History of bladder suspension procedure Social History Social History Smoking status: Never smoker Second hand tobacco smoke exposure: Yes Alcohol intake: never Substance use: never Lack of Transportation: No Lack of Food: Never True Current Housing: I Have Housing Concerned About Future Housing: No Difficulty Paying Gas/Electric Bills: No Difficulty Paying for Meds: No Currently Unemployed: No Education: High School Diploma/GED Difficulty w/ Childcare or Family Care: No Living arrangements: with family Additional living arrangements comments: [facility] [employer] [facility] Spiritual care concerns:
[2023-05-01 14:51] VITALS: BMI 27.1
== END 2023-04-25 13:25 | disposition home or self-care (01) ==
LOC: ANHCSM 10:06
PROVIDERS: PCP Internal Medicine; Visit Provider Internal Medicine Cardiovascular Disease
DX: G47.33 Obstructive sleep apnea (adult) (pediatric) (principal); G47.10 Hypersomnia, unspecified; E78.5 Hyperlipidemia, unspecified; Z96.643 Presence of artificial hip joint, bilateral
CPT/HCPCS: 95800

== ENCOUNTER 2023-06-01 08:35 | Outpatient (CLI) | payer MEDICARE, SELFPAY ==
--- NOTE | 2023-06-25 20:34 | WPDSLEEPSTUD ---
Sleep Study Date of Study: 06/01/23 Ordering Provider: ALEX Higuera Interpreting Physician: Juliet Baker, Sleep Study Type: CPAP Titration Height: 1.8 m Weight: 86.183 kg Body Mass Index: 26.4 Neck Circumference (inches): 14.5 [place]: 17 Reason for Sleep Study The patient had a WatchPAT home study done on 04/24/2023 that showed an overall AHI of 53.7 with desaturation down to 81%. The patient had a central apnea index of 7.3. It was recommended that she have a PAP Titration study. Sleep History The patient is a 67-year-old female with anxiety, arthritis, depression, hyperlipidemia, migraines and pre diabetes that had a sleep study ordered by her electronics engineering manager for evaluation of sleep apnea.? The patient occasionally awakens from sleep short of breath.? She frequently awakens at night with heartburn, belching or cough.? She constantly snores loudly enough that others complain.? She frequently has trouble sleeping when she has a cold.? She occasionally wakes up gasping for air throughout the night.? She occasionally has breathing problems at night observed by herself or others.? She rarely sweats excessively at night.? She occasionally has heart palpitations or irregular heartbeats during the night.? She constantly falls asleep during the day but never while driving.? She denies sleep paralysis and cataplexy.? She constantly has trouble at school or work due to sleepiness.? She frequently experiences vivid dreamlike scenes upon awakening or falling asleep.? She denies feeling afraid of going to sleep.? She occasionally has nightmares frequently remembers her dreams.? He rarely has thoughts racing through her mind.? She occasionally feels sad or depressed.? She occasionally has anxiety.? She rarely has muscular tension.? She rarely notices parts of her body jerk.? She rarely kicks during the night.? She occasionally has crawling and aching feelings in her legs but rarely has leg pain during the night.? She constantly grinds her teeth during sleep but never awakens with morning jaw pain.? She is rarely bothered by pain during the day but never awakened by pain during the night.? She occasionally wakes up with sore or achy muscles.? She rarely wakes up with pain in the neck, spine and other joints.? She goes to bed at 11:00 p.m. on both weekdays and weekends.? The amount of time for her to fall asleep is variable.? She wakes up 3 times throughout the night to urinate and is able to fall back asleep quickly.? She wakes up at 9:00 a.m. on both weekdays and weekends.? She typically gets 10 hours of sleep per night.? He will stay in bed for hours after waking up in the morning.? She currently lives with her spouse, child and her grandson.? She does not consume any caffeinated beverages within 2 hours of bedtime.? She denies engaging in physical exercise before bedtime.? She will read and watch television before falling asleep.? She will take naps in afternoon or the evening but they are not refreshing.? She will consume 1 caffeinated soda per day.? She denies tobacco, alcohol and recreational drug use. [facility] Past Medical History Medical History Anxiety Arthritis Depression HLD (hyperlipidemia) Migraines Prediabetes Surgical History Surgical History H/O bilateral hip replacements H/O lumpectomy benign H/O Spinal surgery H/O: hysterectomy History of bladder suspension procedure Social History Social History Smoking status: Never smoker Second hand tobacco smoke exposure: Yes Alcohol intake: never Substance use: never Lack of Transportation: No Lack of Food: Never True Current Housing: I Have Housing Concerned About Future Housing: No Difficulty Paying Gas/Electric Bills: No Difficulty Paying for Meds: No Currently Unemployed: No Education: Hi
[2023-06-25 20:39] VITALS: BMI 26.4
== END 2023-06-02 07:55 | disposition home or self-care (01) ==
LOC: ANHCSM 08:37
PROVIDERS: PCP Internal Medicine; Visit Provider Physician Assistant
DX: G47.33 Obstructive sleep apnea (adult) (pediatric) (principal)
CPT/HCPCS: 95811

== ENCOUNTER 2023-06-30 15:02 | Emergency (ER) | payer MEDICARE, SELFPAY ==
[2023-06-30 15:17] VITALS: BP 104/69; PULSE 91; RESP 16; TEMP 36.4; O2SAT 100
--- NOTE | 2023-06-30 15:54 | ED.BACK ---
HPI - Back Pain/Injury General Chief Complaint: Back Pain/Injury Stated Complaint: Sciatic Nerve Pain Source: patient Mode of arrival: ambulatory Limitations: no limitations History of Present Illness HPI Narrative: Patient presents for evaluation of low back pain with radiation into right buttock and down posterior aspect of right lower extremity. She has had similar symptoms in the past with sciatic nerve pain. Her symptoms have been present for the past three days. She rates her pain as 10/10 in severity, described as sharp. She has numbness and tingling in RLE. No saddle anesthesia or bladder/bowel incontinence. She does not remember what she was given in the past that helped reduce her pain. She took a tablet of hydrocodone that her sister gave her for her pain this morning without much improvement thereafter. Related Data Home Medications Medication Instructions Recorded Confirmed ascorbic acid (vitamin C) 500 mg 500 mg PO DAILY 06/15/22 06/30/23 tablet cholecalciferol (vitamin D3) 50 50 mcg PO DAILY 06/15/22 06/30/23 mcg (2,000 unit) capsule cyanocobalamin (vitamin B-12) 500 500 mcg PO DAILY 06/15/22 06/30/23 mcg tablet iron 40 mg capsule 45 mg PO DAILY 06/15/22 06/30/23 Allergies Allergy/AdvReac Type Severity Reaction Status Date / Time No Known Allergies Allergy Mild Verified 06/30/23 15:15 Review of Systems Review of Systems: CONSTITUTIONAL: Denies fever, chills, or sweats. EYES: Denies visual changes, redness, or discharge. ENT: Denies rhinorrhea, congestion, sore throat, or otalgia. CARDIOVASCULAR: Denies chest pain, palpitations, or edema. RESPIRATORY: Denies cough or dyspnea. GASTROINTESTINAL: Denies abdominal pain, nausea, vomiting, or diarrhea. GENITOURINARY: Denies dysuria or hematuria. SKIN: Denies rash or itching. MUSCULOSKELETAL: Reports low back pain with radiation into right buttock and down posterior aspect of RLW NEUROLOGIC: Denies headache, numbness, dizziness, or weakness. PSYCHIATRIC: Denies anxiety or depression. [facility] Past Medical History Medical History Anxiety Arthritis Depression HLD (hyperlipidemia) Migraines Prediabetes Sciatica Surgical History Surgical History H/O bilateral hip replacements H/O lumpectomy benign H/O Spinal surgery H/O: hysterectomy History of bladder suspension procedure Family History Family History Mother Family history non-contributory Social History Social History Smoking status: Never smoker Second hand tobacco smoke exposure: Yes Alcohol intake: never Substance use: never Lack of Transportation: No Lack of Food: Never True Current Housing: I Have Housing Concerned About Future Housing: No Difficulty Paying Gas/Electric Bills: No Difficulty Paying for Meds: No Currently Unemployed: No Education: High School Diploma/GED Difficulty w/ Childcare or Family Care: No Living arrangements: with family Additional living arrangements comments: [employer] Spiritual care concerns: No Exam Narrative: GENERAL: Well-appearing, but visibly uncomfortable. Well-nourished, and in no acute distress. HEAD: Normocephalic, atraumatic. EYES: PERRLA and EOMI. ENT: Nares clear, no rhinorrhea or epistaxis. Mucous membranes moist. Oropharynx without tonsillar hypertrophy exudate or other lesions. Bilateral TMs pearly zaragoza nonbulging NECK: Supple. No adenopathy or masses. No carotid bruits or JVD CHEST: Clear to auscultation. No respiratory distress. No wheezes rales or rhonchi HEART: Regular rate and rhythm. No murmur heard. Normal peripheral pulses. ABDOMEN: Soft, nontender, nondistended, normal active bowel sounds. BACK: No tenderness in midline or parasp
[2023-06-30] MEDS: KETOROLAC (*BKC) 60 MG/2 ML VIAL IM (16:00)
== END 2023-06-30 16:18 | disposition home or self-care (01) ==
PROVIDERS: Emergency Provider Nurse Practitioner; PCP Internal Medicine
DX: M54.31 Sciatica, right side (principal); M19.90 Unspecified osteoarthritis, unspecified site; E78.5 Hyperlipidemia, unspecified; R73.03 Prediabetes; Z96.653 Presence of artificial knee joint, bilateral; F41.9 Anxiety disorder, unspecified; F32.A Depression, unspecified
CPT/HCPCS: 96372; 99213; G0463; J1885

== ENCOUNTER 2024-03-20 08:12 | Outpatient (CLI) | payer MEDICARE, SELFPAY ==
[2024-03-20 10:26] LABS: Basophils Absolute Auto 0.1 K/mm3 (0.0-0.1); Basophils Percent Auto 0.8 % (0.2-1.2); Eosinophils Absolute Auto 0.2 K/mm3 (0-0.3); Eosinophils Percent Auto 2.9 % (0-4.4); Hematocrit 40.3 % (37.0-47.0); Hemoglobin 12.9 g/dL (12.0-15.0); Immature Granulocyte Absolute 0.01 K/mm3 (0.00-0.031); Immature Granulocyte Percent A 0.2 % (0-0.5); Lymphocytes Absolute Auto 1.87 K/mm3 (0.9-3.2); Lymphocytes Percent Auto 30.2 % (18.3-44.2); Mean Corpuscular Volume 87.6 fl (80-100); Mean Platelet Volume 11.3 fl (7.4-10.4); Monocytes Absolute Auto 0.5 K/mm3 (0.1-0.6); Monocytes Percent Auto 7.7 % (2.6-8.5); Neutrophils Absolute Auto 3.6 K/mm3 (1.3-6.7); Neutrophils Percent Auto 58.2 % (45.5-73.1); Platelet Count Result 251 k/mm3 (150-375); White Blood Count 6.2 K/mm3 (4.5-10.0)
[2024-03-20 10:54] LABS: Alanine Aminotransferase 26 U/L (6-35); Albumin Level 4.4 g/dL (3.5-5.1); Alkaline Phosphatase 102 U/L (38-126); Anion Gap 10 mmol/L (4-12); Aspartate Amino Transferase 46 U/L (14-36); Bilirubin,Total 0.6 mg/dL (0.2-1.3); Blood Urea Nitrogen 25 mg/dL (7-17); Carbon Dioxide 29 mmol/L (22-30); Chloride 103 mmol/L (98-107); Cholesterol 205 mg/dL (0-200); Estimated Glomerular Filt Rate 55; Glucose 142 mg/dL (65-110); HDL Direct 43 mg/dL; Potassium 4.6 mmol/L (3.4-5.0); Sodium 142 mmol/L (137-145); Triglycerides 134 mg/dL (<150)
[2024-03-20 11:05] LABS: LDL Cholesterol Direct 122 mg/dL
[2024-03-20 11:29] LABS: Vitamin D 25 Hydroxy 38.6 ng/mL
[2024-03-20 12:08] LABS: Hemoglobin A1C 6.7 % (<5.7)
== END 2024-03-20 08:13 | disposition home or self-care (01) ==
LOC: ANHGOSHLAB 08:13
PROVIDERS: PCP Nurse Practitioner; Visit Provider Nurse Practitioner
DX: E55.9 Vitamin D deficiency, unspecified (principal); R73.03 Prediabetes; E78.2 Mixed hyperlipidemia
CPT/HCPCS: 36415; 80053; 80061; 82306; 83036; 85025

== ENCOUNTER 2024-06-13 12:45 | Outpatient (CLI) | payer MEDICARE, SELFPAY ==
--- NOTE | ~2024-06-13 | MM_ITS ---
EXAMINATION: MM screening sunny BI w alexandra HISTORY: Screening TECHNIQUE: Craniocaudal and mediolateral oblique 3-D tomosynthesis images were obtained and synthetic 2-D images were generated. CAD analysis was submitted and interpreted. COMPARISON: Comparison to multiple prior studies sequentially, with oldest reviewed study dated 02/2017. BREAST PARENCHYMAL COMPOSITION: Not Dense: The breasts are almost entirely fatty. FINDINGS: There is no evidence of suspicious mass, calcification, or architectural distortion to sugg est malignancy in either breast. There has been no suspicious interval change. IMPRESSION: 1. No mammographic evidence of malignancy. 2. Recommend routine screening mammography in one year. BI-RADS Category 1: Negative Reviewed, dictated and finalized at location B.
== END 2024-06-13 12:46 | disposition home or self-care (01) ==
LOC: MICIMG 12:46
PROVIDERS: PCP Internal Medicine; Visit Provider Internal Medicine
DX: Z12.31 Encounter for screening mammogram for malignant neoplasm of breast (principal)
CPT/HCPCS: 77063; 77067

== ENCOUNTER 2024-10-13 07:10 | Day surgery (SDC) | payer MEDICARE, SELFPAY ==
[2024-09-25 10:48] VITALS: BMI 28.8
[2024-09-26 09:04] VITALS: BMI 26.8
--- NOTE | 2024-10-12 06:00 | WPDANESEPPF ---
Anes - Initial Pre Proc Eval Procedure: Operation Date: 10/13/24 09:00 Proposed Procedures p Screening Colonoscopy - Chester Templeton DO Date/Time: 10/12/24 06:00 Surgeon: Chester Templeton DO Pre Op Diagnosis: Neoplasm Screening Patient Data Age: 69 Gender: F Height: 1.8 m Weight: 87.3 kg Allergies Allergy/AdvReac Type Severity Reaction Status Date / Time No Known Allergies Allergy Mild Verified 10/13/24 08:03 Home Medications ?Medication ?Instructions ?Recorded ?Confirmed ?Type ascorbic acid (vitamin C) 500 mg 500 mg PO DAILY 06/15/22 10/13/24 History tablet cholecalciferol (vitamin D3) 50 50 mcg PO DAILY 06/15/22 10/13/24 History mcg (2,000 unit) capsule cyanocobalamin (vitamin B-12) 500 500 mcg PO DAILY 06/15/22 10/13/24 History mcg tablet simvastatin 40 mg tablet 40 mg PO DAILY #90 tabs 05/20/24 10/13/24 Rx paroxetine HCl 20 mg tablet (Paxil) 20 mg PO QAM #90 tabs 09/17/24 10/13/24 Rx calcium carbonate 600 mg PO BID 09/22/24 10/13/24 History Patient hx anesthesia problems: none Family hx anesthesia problems: none Results Review: All pre-operative results and documents have been reviewed as part of the pre-operative evaluation. [facility] Past Medical History Medical History (Updated 10/12/24 @ 06:01 by Gabino Pringle DO) ANGEL LUIS (obstructive sleep apnea) Sciatica Prediabetes Depression Anxiety Arthritis HLD (hyperlipidemia) Migraines Surgical History Surgical History H/O Spinal surgery H/O bilateral hip replacements History of bladder suspension procedure H/O lumpectomy benign H/O: hysterectomy Family History Family History Mother Family history non-contributory Social History Social History (Updated 05/20/24 @ 13:20 by Kimberli Soto CMA) Smoking status: Never smoker Second hand tobacco smoke exposure: Yes Alcohol intake: never Substance use: never Substance use type: does not use Do You Feel Safe in your Home?: Yes Lack of Transportation: No Lack of Food: Never True Current Housing: I Have Housing Concerned About Future Housing: No Difficulty Paying Gas/Electric Bills: No Difficulty Paying for Meds: No Currently Unemployed: No Education: High School Diploma/GED Difficulty w/ Childcare or Family Care: No Living arrangements: with family Additional living arrangements comments: [employer] Spiritual care concerns: No Anes - Eval Final PreProcedure Day of Procedure 10/12/24 06:00 Patient weight: overweight Heart: regular rate and rhythm Lungs: clear to auscultation Airway: Mallampati scale class II Neurological: alert and oriented Last oral intake: >/= 8 hours ASA classification: III Emergent: no Anesthetic plan: proceed Anesthesia type and monitoring: general GIVS and standard monitoring Results Review: All pre-operative results and documents have been reviewed as part of the pre-operative evaluation. Informed Consent: The patient's anesthetic plan and its attendant risks and benefits were discussed with the patient/family/POA. Questions were solicited and answers provided to the satisfaction of the patient/family/POA.
--- OUTSIDE RECORDS SUMMARY | 2024-10-13 07:20 | XMS_ITS | CONTINUITY OF CARE DOCUMENT ---
Author Name lenora cooley Address Unknown Organization [facility] Address [address] [place] [address] Phone [phone] Care Team Providers Care Drywall Taper Name Role Phone lenora cooley Unavailable Unavailable INSURANCE PROVIDERS Payer name Policy type / Coverage type Carie red libertarian ID [facility] [id number] Other [id number]
[2024-10-13 08:02] VITALS: BP 124/73; PULSE 97; RESP 16; TEMP 37.6; O2SAT 97
[2024-10-13] MEDS: LACTATED RINGERS 1,000 ML 150 ML IV CONT (08:02)
--- NOTE | 2024-10-13 08:51 | PM.IMHP ---
H&P: HPI History of Present Illness Date/Time: 10/13/24 08:51 Chief Complaint: screening for colorectal cancer Narrative: this is a 69 presents for colonoscopy. Her last colonoscopy was she denies prior history of polyps. She denies him at Review of Systems Review of Systems: All systems reviewed & are unremarkable except as noted in HPI and below Constitutional: Constitutional: Denies chills, Denies fever(s), Denies headache(s) and Denies weight loss Eyes: Eyes: Denies change in vision ENT: Denies dizziness, Denies headache(s), Denies neck mass and Denies throat swelling Cardiovascular: Cardiovascular: Denies chest pain, Denies lightheadedness and Denies dyspnea Respiratory: Respiratory: Denies cough, Denies dyspnea and Denies wheezing Gastrointestinal: Gastrointestinal: Denies abdominal pain, Denies change in bowel habits, Denies nausea and Denies vomiting Genitourinary: Genitourinary: Denies hematuria and Denies dysuria Musculoskeletal: Musculoskeletal: Reports as per HPI Integumentary/Breasts: Skin/Breast: Reports as per HPI Neurologic: Denies dizziness and Denies headache(s) Allergic/Immunologic: Allergic/Immunologic: Denies throat swelling and Denies wheezing [facility] Past Medical History Medical History (Updated 10/12/24 @ 06:01 by Gabino Pringle DO) ANGEL LUIS (obstructive sleep apnea) Sciatica Prediabetes Depression Anxiety Arthritis HLD (hyperlipidemia) Migraines Surgical History Surgical History H/O Spinal surgery H/O bilateral hip replacements History of bladder suspension procedure H/O lumpectomy benign H/O: hysterectomy Family History Family History Mother Family history non-contributory Social History Social History (Updated 05/20/24 @ 13:20 by Kimberli Soto CMA) Smoking status: Never smoker Second hand tobacco smoke exposure: Yes Alcohol intake: never Substance use: never Substance use type: does not use Do You Feel Safe in your Home?: Yes Lack of Transportation: No Lack of Food: Never True Current Housing: I Have Housing Concerned About Future Housing: No Difficulty Paying Gas/Electric Bills: No Difficulty Paying for Meds: No Currently Unemployed: No Education: High School Diploma/GED Difficulty w/ Childcare or Family Care: No Living arrangements: with family Additional living arrangements comments: [facility] Spiritual care concerns: No Meds Home Medications and Allergies Home Medications ?Medication ?Instructions ?Recorded ?Confirmed ?Type ascorbic acid (vitamin C) 500 mg 500 mg PO DAILY 06/15/22 10/13/24 History tablet cholecalciferol (vitamin D3) 50 50 mcg PO DAILY 06/15/22 10/13/24 History mcg (2,000 unit) capsule cyanocobalamin (vitamin B-12) 500 500 mcg PO DAILY 06/15/22 10/13/24 History mcg tablet simvastatin 40 mg tablet 40 mg PO DAILY #90 tabs 05/20/24 10/13/24 Rx paroxetine HCl 20 mg tablet (Paxil) 20 mg PO QAM #90 tabs 09/17/24 10/13/24 Rx calcium carbonate 600 mg PO BID 09/22/24 10/13/24 History Allergies Allergy/AdvReac Type Severity Reaction Status Date / Time No Known Allergies Allergy Mild Verified 10/13/24 08:03 Vital Signs Vital Signs - 24 hr 10/13/24 08:02 Temperature 99.6 F Pulse Rate 97 Respiratory Rate 16 Blood Pressure 124/73 Pulse Oximetry 97 Oxygen Delivery Room Air Exam Const: General: no acute distress and alert Orientation/consciousness: patient oriented x3 HENMT: Head: normocephalic and atraumatic Ears: hearing grossly normal bilaterally Face/Nose/Sinus: Normal nares present Mouth: Yes Normal oral and palatal mucosa present Eyes: Periorbital: periorbital findings normal Sclera: sclerae normal EOM: EOMs intact bilaterally Neck: Neck: normal visual inspection, no lymphadenopathy and trachea midline Chest: Chest palpation & inspection: normal inspection of the chest Resp: Effort & Inspection: normal respiratory effort Auscultation: clear to auscultation bilaterally Cardio: Jugular venous distension: no JVD Rate: regular rate Rhythm: regular rhythm Heart sounds: S1 normal heart sound present and S2 normal heart sound present Peripheral pulses: Peripheral pulses 2+ throughout GI: Inspection: normal to inspection GI Palp: Yes Soft to palpation, No Tenderness to palpation present (GI), No Guarding due to palpation present (GI) and No Rebound tenderness present Percussion: Yes normal to percussion Auscultation: normal bowel sounds : General: Yes no CVA tenderness Back/Spine/Pelvis: Back: no CVA tenderness Neuro: General: patient oriented x3, no focal motor deficits and CN's II-XI intact bilaterally Cognition (Neuro): normal cognition Speech: normal speech Motor exam (neuro): 5/5 motor strength present throughout Extrem: General: capillary refill normal and no clubbing, cyanosis or edema Assessment and Plan Assessment and plan (1) Screening for colon cancer: Code(s): Z12.11 - Encounter for screening for malignant neoplasm of colon Status: Acute Assessment and Plan: I have recommended colonoscopy. I have discussed the procedure, risks, benefits, and alternatives. Questions were answered. Patient is agreeable to proceed.
[2024-10-13 09:24] VITALS: BP 129/64; PULSE 100; RESP 16; O2SAT 97
[2024-10-13 09:34] VITALS: BP 123/62; PULSE 90; RESP 16; O2SAT 97
[2024-10-13 09:44] VITALS: BP 124/69; PULSE 85; RESP 16; O2SAT 97
--- NOTE | 2024-10-13 09:52 | WPDANESPN ---
Anes - Prog Note Post-Op Date/Time: 10/13/24 09:52 Cardiovascular status: normal Respiratory status: normal Airway patency: baseline Mental status: baseline Post-Op hydration status: normal Vital Signs: Last Vital Signs Temp 37.6 C 10/13/24 08:02 Pulse 85 10/13/24 09:44 Resp 16 10/13/24 09:44 BP 124/69 10/13/24 09:44 Pulse Ox 97 10/13/24 09:44 O2 Del Method Room Air 10/13/24 09:44 Pain Score (VAS): 0 I/O: Intake & Output 10/12/24 10/13/24 10/13/24 23:59 07:59 15:59 Intake Total 600 Balance 600 Post-procedural complaints: none Patient Feedback: Patient satisfied with anesthetic care. Other Findings: Patient vital signs back to baseline. Patient denies nausea and vomiting. Patient's pain under control. Patient OK for discharge.
== END 2024-10-13 09:54 ==
PROVIDERS: PCP Nurse Practitioner; Referring Provider Nurse Practitioner; Visit Provider Surgery
PROC: 0DJD8ZZ Inspection of Lower Intestinal Tract, Via Natural or Artificial Opening Endoscopic (ICD-10-PCS; CPT 45378; principal; 2024-10-13 09:00)
DX: Z12.11 Encounter for screening for malignant neoplasm of colon (principal); K57.30 Diverticulosis of large intestine without perforation or abscess without bleeding
CPT/HCPCS: G0121

== ENCOUNTER 2024-11-18 10:24 | Outpatient (CLI) | payer MEDICARE, SELFPAY ==
--- OUTSIDE RECORDS SUMMARY | 2024-11-18 11:48 | XMS_ITS | CONTINUITY OF CARE DOCUMENT ---
Author Name lenora cooley Address Unknown Organization [facility] Address [address] [place] [address] Phone [phone] Care Team Providers Care Knitter Hand Name Role Phone lenora cooley Unavailable Unavailable INSURANCE PROVIDERS Payer name Policy type / Coverage type Carie red republican ID [facility] [id number] Other [id number]
[2024-11-18 13:44] LABS: Alanine Aminotransferase 19 U/L (6-35); Albumin Level 4.6 g/dL (3.5-5.1); Alkaline Phosphatase 106 U/L (38-126); Anion Gap 10 mmol/L (4-12); Aspartate Amino Transferase 39 U/L (14-36); Bilirubin,Total 0.4 mg/dL (0.2-1.3); Blood Urea Nitrogen 28 mg/dL (7-17); Carbon Dioxide 29 mmol/L (22-30); Chloride 103 mmol/L (98-107); Cholesterol 204 mg/dL (0-200); Estimated Glomerular Filt Rate 58; Glucose 149 mg/dL (65-110); HDL Direct 51 mg/dL; Potassium 4.4 mmol/L (3.4-5.0); Sodium 142 mmol/L (137-145); Triglycerides 162 mg/dL (<150)
[2024-11-18 13:55] LABS: LDL Cholesterol Direct 108 mg/dL
[2024-11-18 14:14] LABS: Vitamin D 25 Hydroxy 30.5 ng/mL
[2024-11-18 14:32] LABS: Creatinine Urine 206.4 mg/dL
[2024-11-18 14:52] LABS: MALB Creatinine Ratio 49.6 mg/g (0-30); Microalbumin Urine Random 102.3 mg/L (0-16.7)
[2024-11-18 14:56] LABS: Hemoglobin A1C 6.3 % (<5.7)
== END 2024-11-18 10:25 | disposition home or self-care (01) ==
PROVIDERS: PCP Nurse Practitioner; Visit Provider Nurse Practitioner
DX: E55.9 Vitamin D deficiency, unspecified (principal); E11.9 Type 2 diabetes mellitus without complications; E78.5 Hyperlipidemia, unspecified
CPT/HCPCS: 36415; 80053; 80061; 82043; 82306; 83036

== ENCOUNTER 2024-11-25 13:32 | Outpatient (CLI) | payer MEDICARE, SELFPAY ==
--- NOTE | ~2024-11-25 | XR_ITS ---
Clinical Indication: Pleurodynia PA and lateral views of the chest: Comparison: 05/05/2020 Findings: The lungs are clear, without evidence of focal consolidation or pleural effusion. Cardiome diastinal silhouette is within normal limits. Bones and soft tissues are unremarkable. Impression: Normal chest. Reviewed, dictated and finalized at [facility]. Impression: Normal chest.
== END 2024-11-25 13:33 | disposition home or self-care (01) ==
LOC: GOSHIMG 13:32
PROVIDERS: PCP Nurse Practitioner; Visit Provider Nurse Practitioner
DX: R07.81 Pleurodynia (principal)
CPT/HCPCS: 71046

== ENCOUNTER 2025-05-18 08:46 | Outpatient (CLI) | payer MEDICARE, SELFPAY ==
[2025-05-18 12:54] LABS: Hematocrit 42.5 % (37.0-47.0); Hemoglobin 13.0 g/dL (12.0-15.0); Immature Granulocyte Percent A 0.1 % (0-0.5); Lymphocytes Absolute Auto 1.89 K/mm3 (0.9-3.2); Mean Corpuscular HGB Conc 30.6 g/dl (32-36); Mean Corpuscular Hemoglobin 27.0 pg (26-34); Mean Corpuscular Volume 88.2 fl (80-100); Nucleated Red Blood Cells Absolute Auto 0.000 K/mm3 (0.0-0.012); Nucleated Red Blood Cells Perc 0.0 % (0.0-0.2); Platelet Count Result 327 k/mm3 (150-375); Red Blood Count 4.82 M/mm3 (4.2-5.4); White Blood Count 7.0 K/mm3 (4.5-10.0)
[2025-05-18 13:22] LABS: Alanine Aminotransferase 19 U/L (6-35); Albumin Level 4.5 g/dL (3.5-5.1); Alkaline Phosphatase 119 U/L (38-126); Anion Gap 10 mmol/L (4-12); Aspartate Amino Transferase 75 U/L (14-36); Bilirubin,Total 0.7 mg/dL (0.2-1.3); Blood Urea Nitrogen 26 mg/dL (7-17); Calcium 9.3 mg/dL (8.4-10.2); Carbon Dioxide 27 mmol/L (22-30); Chloride 102 mmol/L (98-107); Cholesterol 205 mg/dL (0-200); Estimated Glomerular Filt Rate 49; Glucose 177 mg/dL (65-110); HDL Direct 43 mg/dL; Potassium 4.1 mmol/L (3.4-5.0); Sodium 139 mmol/L (137-145); Total Protein 7.9 g/dL (6.3-8.2); Triglycerides 142 mg/dL (<150)
[2025-05-18 14:17] LABS: Hemoglobin A1C 6.6 % (<5.7)
== END 2025-05-18 08:47 | disposition home or self-care (01) ==
LOC: ANHGOSHLAB 08:47
PROVIDERS: PCP Nurse Practitioner; Visit Provider Nurse Practitioner
DX: R73.03 Prediabetes (principal); E55.9 Vitamin D deficiency, unspecified; E78.2 Mixed hyperlipidemia; R73.01 Impaired fasting glucose
CPT/HCPCS: 36415; 80053; 80061; 82306; 83036; 85025

== ENCOUNTER 2025-06-15 12:34 | Outpatient (CLI) | payer MEDICARE, SELFPAY ==
--- NOTE | ~2025-06-15 | MM_ITS ---
EXAMINATION: MM screening sunny BI w alexandra HISTORY: Screening TECHNIQUE: Craniocaudal and mediolateral oblique 3-D tomosynthesis images were obtained and synthetic 2-D images were generated. CAD analysis was submitted and interpreted. COMPARISON: Comparison to multiple prior studies sequentially, with oldest reviewed study dated , 10/28/2020 BREAST PARENCHYMAL COMPOSITION: There are scattered areas of fibroglandular density. FINDINGS: There is no evidence of suspicious mass, calcification, or architectural distortion to suggest malignancy in either breast. Biopsy clip in the left breast. IMPRESSION: 1. No mammographic evidence of malignancy. 2. Recommend routine screening mammography in one year. BI-RADS Category 1: Negative Reviewed, dictated and finalized at location [facility].
== END 2025-06-15 12:35 | disposition home or self-care (01) ==
LOC: MICIMG 12:36
PROVIDERS: PCP Nurse Practitioner; Visit Provider Internal Medicine
DX: Z12.31 Encounter for screening mammogram for malignant neoplasm of breast (principal)
CPT/HCPCS: 77063; 77067